=== PATIENT | male | born 1955 | race Two or more races ===

== ENCOUNTER → 2017-01-15 | Outpatient (CLI) | payer MEDICARE, OTHER ==
[2017-01-18 14:08] LABS: TESTOSTERONE FREE (DIRECT) 18.6 pg/mL (6.6-18.1)
== END ==
LOC: OD 12:44
PROVIDERS: ATTEND Urology
DX: E29.1 Testicular hypofunction (principal)
CPT/HCPCS: 36415; 84402; 84403